=== PATIENT | female | born 1995 | race American Indian/Alaskan Native ===

== ENCOUNTER 2017-12-30 02:14 | Emergency (ER) | payer OTHER ==
[2017-12-30 04:18] VITALS: BP 115/68
--- NOTE | 2017-12-30 05:42 | Emergency Department Report ---
Eye Injury/Foreign Body - HPI Duration: Today Eye Location: Right Severity: None Tetanus Status: Up to Date Eye Symptoms: Eye Pain: No, Blurred Vision: No, Eye Redness: Yes, Grinding/ Hammering Metal: No, Used Eye Protection: No, Contact Lens Use: No, Recalls Injury: No, Photophobia: No Other History: This is a 22-year-old female with no prior medical history who presents to the ED stating that around midnight tonight she felt some irritation in her right eye began itching. She states that she noticed that it was swollen around the eye. Patient states earlier she was eating some chicken she inks did use meth splashed in her eye. She denies eye pain, blurry vision, foreign object in eye. ED Review of Systems ROS: Stated complaint: RIGHT EYE SWELLING,COLD,FLU Other details as noted in HPI Constitutional: denies: chills, fever Eyes: denies: eye pain, eye discharge, vision change ENT: denies: ear pain, throat pain Respiratory: denies: cough, shortness of breath, wheezing Cardiovascular: denies: chest pain, palpitations Endocrine: no symptoms reported Gastrointestinal: denies: abdominal pain, nausea, diarrhea Genitourinary: denies: urgency, dysuria, discharge Musculoskeletal: denies: back pain, joint swelling, arthralgia Skin: denies: rash, lesions Neurological: denies: headache, weakness, paresthesias Psychiatric: denies: anxiety, depression Hematological/Lymphatic: denies: easy bleeding, easy bruising ED Past Medical Hx - Past Medical History Previous Medical History?: No - Surgical History Past Surgical History?: No - Social History Smoking Status: Never Smoker - Medications Home Medications: Home Medications Medication Instructions Recorded Confirmed Last Taken Type Ofloxacin [Ocuflox] 1 drop OP TID #5 ml 12/30/17 Unknown Rx guaiFENesin [Robitussin] 200 mg PO TID #80 ml 12/30/17 Unknown Rx Eye Injury Exam - Exam General: Vital signs noted. No distress. Alert and acting appropriately. GENERAL: Alert and oriented x3, no apparent distress, Normal Gait, atraumatic. HEAD: Head is normocephalic and a-traumatic. EYES: Extra ocular muscles are intact. Pupils are equal, round, and reactive to light and accommodation. Mild conjunctival erythema. No foreign objected in eye,Vision is intact bilaterally. LUNGS: Symetrical with respiration, CTAB. HEART: S1, S2 present, regular rate and rhythm without murmur, SKIN: Warm and dry, No lesions, No ulceration or induration present. ED Course Vital Signs 12/30/17 04:12 Temperature 98.3 F Pulse Rate 100 H Respiratory 18 Rate Blood Pressure 115/68 O2 Sat by Pulse 100 Oximetry ED Medical Decision Making - Medical Decision Making 22-year-old female presents with mild conjunctivitis Course: Patient had no visual impairment. Robitussin given for cough symptoms. Eyedrops given. Vital signs are normal patient is in no acute distress I discussed with patient to follow up with primary care physician. Critical care attestation.: If time is entered above; I have spent that time in minutes in the direct care of this critically ill patient, excluding procedure time. ED Disposition Clinical Impression: Conjunctivitis Qualifiers: Conjunctivitis type: acute Acute conjunctivitis type: atopic Laterality: right Qualified Code(s): H10.11 - Acute atopic conjunctivitis, right eye Disposition: - TO HOME OR SELFCARE Is pt being admited?: No Does the pt Need Aspirin: No Condition: Stable Instructions: Conjunctivitis (ED) Additional Instructions: Make sure to follow up with the primary care physician as discussed. Take all your medications as you've been prescribed. If you have any worsening symptoms or develop new symptoms please return to ED immediately. Prescriptions: guaiFENesin [Robitussin] 200 mg PO TID #80 ml Ofloxacin [Ocuflox] 1 drop OP TID #5 ml Referrals: GREYSON CUNNINGHAM MD [Primary Care Provider] - 3-5 Days [facility] [Outside] - 3-5 Days [facility] [Outside] - 3-5 Days [facility] [Outside] - 3-5 Days Forms: Work/School Release Form(ED) Time of Disposition: 06:00
[2017-12-30] MEDS ORDERED: DELTASONE PO ONE (05:48)
[2017-12-30] MEDS ORDERED: ROBITUSSIN PO ONE (05:48)
== END 2017-12-30 06:10 | disposition home or self-care (01) ==
LOC: ED 02:14
DX: H10.9 Unspecified conjunctivitis (principal)
CPT/HCPCS: 99282; J7512